=== PATIENT | male | born 1970 ===

== ENCOUNTER 2020-11-14 10:30 | Outpatient (CLI) | payer OTHER | END 2020-11-14 11:30 | disposition home or self-care (01) | LOC: PPH VACUNA 10:30 | PROVIDERS: ATTEND Emergency Medicine Pediatric Emergency Medicine | DX: Z23 Encounter for immunization (principal) ==

== ENCOUNTER 2022-01-25 13:42 | Outpatient (CLI) | payer OTHER | END 2022-01-25 13:52 | disposition home or self-care (01) | LOC: PPH VACUNA 13:42 | PROVIDERS: ATTEND Emergency Medicine Pediatric Emergency Medicine | DX: Z23 Encounter for immunization (principal) ==